=== PATIENT | female | born 1990 | race Caucasian/White ===

== ENCOUNTER 2019-06-27 20:10 | Outpatient (CLI) | payer BC ==
[2019-06-27 20:54] LABS: APPEARANCE,URINE CLOUDY; BILIRUBIN,URINE NEGATIVE (NEGATIVE); COLOR,URINE YELLOW; GLUCOSE, URINE NEGATIVE (NEGATIVE); KETONES,URINE NEGATIVE (NEGATIVE); LEUKOCYTE ESTERASE,URINE NEGATIVE (NEGATIVE); NITRITE,URINE NEGATIVE (NEGATIVE); PROTEIN,URINE 30 mg/dL (NEGATIVE); UROBILINOGEN,URINE NEGATIVE mg/dL (<2.0)
[2019-06-27 21:00] LABS: URINE AMPHETAMINES SCREEN NEGATIVE; URINE BARBITURATES SCREEN NEGATIVE; URINE BENZODIAZEPINES SCREEN NEGATIVE; URINE COCAINE SCREEN NEGATIVE; URINE MARIJUANA (THC) SCREEN NEGATIVE; URINE METHADONE SCREEN NEGATIVE; URINE PHENCYCLIDINE SCREEN NEGATIVE
[2019-06-27 21:04] LABS: ABSOLUTE EOSINOPHILS # (AUTO) 0.1 10^3/uL (0.0-0.6); ABSOLUTE LYMPHOCYTES (AUTO) 2.1 10^3/uL (0.5-4.7); ABSOLUTE MONOCYTES (AUTO) 1.3 10^3/uL (0.1-1.4); ABSOLUTE NEUT (AUTO) 9.5 10^3/uL (1.7-8.2); BASOPHILS % (AUTO) 0.2 % (0-2); EOSINOPHILS % (AUTO) 0.8 % (0-6); HEMATOCRIT 28.1 % (36.0-47.0); HEMOGLOBIN 9.5 g/dL (12.0-15.5); LYMPHOCYTES % (AUTO) 16.3 % (13-45); MEAN CORPUSCULAR HEMOGLOBIN 28.2 pg (27.0-33.4); MEAN CORPUSCULAR HGB CONC 33.8 g/dL (32.0-36.0); MEAN CORPUSCULAR VOLUME 83 fl (80-97); MONOCYTES % (AUTO) 9.7 % (3-13); PLATELET COUNT 182 10^3/uL (150-450); RED BLOOD COUNT 3.37 10^6/uL (3.72-5.28); RED CELL DISTRIBUTION WIDTH 14.7 % (11.5-14.0); TOTAL CELLS COUNTED % (AUTO) 100 %
[2019-06-27 21:27] LABS: ALBUMIN 3.2 g/dL (3.5-5.0); ALKALINE PHOSPHATASE 106 U/L (38-126); ANION GAP 11 (5-19); ASPARTATE AMINO TRANSFERASE 20 U/L (14-36); BILIRUBIN,DIRECT 0.2 mg/dL (0.0-0.4); BILIRUBIN,TOTAL 0.3 mg/dL (0.2-1.3); BLOOD UREA NITROGEN 6 mg/dL (7-20); CALCIUM 9.9 mg/dL (8.4-10.2); CARBON DIOXIDE 22 mmol/L (22-30); CHLORIDE 102 mmol/L (98-107); GLUCOSE 117 mg/dL (75-110); POTASSIUM 3.2 mmol/L (3.6-5.0); TOTAL PROTEIN 6.1 g/dL (6.3-8.2); URIC ACID 4.4 mg/dL (2.5-6.2)
[2019-06-27 21:28] LABS: UR PRO/CREAT RATIO RESULT 0.4 mg/mg (0.0-0.2); URINE CREATININE 93.8 mg/dL (16-327); URINE PROTEIN 38.6 mg/dL (<12)
== END 2019-06-27 22:04 | disposition home or self-care (01) ==
LOC: LC 20:10
PROVIDERS: ATTEND Obstetrics & Gynecology
PROC: 4A1HXCZ Monitoring of Products of Conception, Cardiac Rate, External Approach (ICD-10-PCS; principal; 2019-06-27)
DX: O47.03 False labor before 37 completed weeks of gestation, third trimester (principal); Z3A.35 35 weeks gestation of pregnancy
CPT/HCPCS: 36415; 59025; 80053; 80307; 81001; 82570; 83615; 84156; 84550; 85025

== ENCOUNTER 2019-06-28 22:09 | Outpatient (CLI) | payer BC ==
--- NOTE | 2019-06-28 22:20 | Non Stress Test Report ---
Non Stress Test Datetime Report Generated by CPN: 06/28/2019 22:19 DEMOGRAPHIC EGA NST: 35.1 INDICATION Indication for Study (NST) Other: labor check URINE RESULTS Urine Protein, NST: Positive Urine Ketones - NST: Negative Urine Glucose - NST: Negative Urine Blood - NST: Negative MONITORING Monitor Explained: Monitor Explained; Test Explained; Patient Verbalized Understanding Time on Monitor: 06/27/2019 20:28 Time off Monitor: 06/27/2019 21:42 NST Duration: 74 NST INTERVENTIONS NST Interventions: PO Hydration Physician Notified NST: Adams BABY A: [id number] BABY A Movement : Present Accelerations : 15X15 Decelerations : None Variability : Moderate 6-25bpm NST Review: Meets Criteria for Reactive NST NST Review and Verified By : rn wilda NST Results: Reactive NST REPORT Report Trigger: Send Report
[2019-06-28 23:56] LABS: URINE PROTEIN 24.3 mg/dL (<12)
[2019-06-28 23:57] LABS: 24 HOUR URINE PROTEIN RESULT 1215 mg/day (42-225)
--- NOTE | 2019-06-29 00:37 | Non Stress Test Report ---
Non Stress Test Datetime Report Generated by CPN: 06/29/2019 00:37 DEMOGRAPHIC EGA NST: 35.2 INDICATION Indication for Study (NST) Other: Gestational age greater than 32 weeks VITAL SIGNS Pulse - NST: 96 NBPSYS NST: 140 NBPDIA NST: 96 MONITORING Monitor Explained: Monitor Explained; Test Explained; Patient Verbalized Understanding Time on Monitor: 06/28/2019 22:27 Time off Monitor: 06/29/2019 00:12 NST Duration: 105 NST INTERVENTIONS NST Interventions: PO Hydration; Reposition Patient Physician Notified NST: Dr. Randy BABY A Contraction Frequency : irregular FHR Baseline : 155 Accelerations : 15X15 Decelerations : None NST Review: Meets Criteria for Reactive NST NST Review and Verified By : Cem Oviedo RN NST Results: Reactive NST REPORT Report Trigger: Send Report
== END 2019-06-29 00:28 | disposition home or self-care (01) ==
LOC: LC 22:09
PROVIDERS: ATTEND Obstetrics & Gynecology
DX: O47.03 False labor before 37 completed weeks of gestation, third trimester (principal); Z3A.35 35 weeks gestation of pregnancy
CPT/HCPCS: 59025; 84156

== ENCOUNTER 2019-07-05 03:36 | Outpatient (CLI) | payer BC ==
[2019-07-05 04:14] LABS: APPEARANCE,URINE SLIGHTLY-CLOUDY; BILIRUBIN,URINE NEGATIVE (NEGATIVE); COLOR,URINE YELLOW; GLUCOSE, URINE NEGATIVE (NEGATIVE); KETONES,URINE 20 mg/dL (NEGATIVE); LEUKOCYTE ESTERASE,URINE TRACE (NEGATIVE); NITRITE,URINE NEGATIVE (NEGATIVE); PROTEIN,URINE NEGATIVE (NEGATIVE); URINE SPECIFIC GRAVITY 1.009; UROBILINOGEN,URINE NEGATIVE mg/dL (<2.0)
[2019-07-05] MEDS ORDERED: FLUCONAZOLE 100 MG TABLET PO ONE (04:23)
[2019-07-05 04:25] LABS: URINE AMPHETAMINES SCREEN NEGATIVE; URINE BARBITURATES SCREEN NEGATIVE; URINE BENZODIAZEPINES SCREEN NEGATIVE; URINE COCAINE SCREEN NEGATIVE; URINE MARIJUANA (THC) SCREEN NEGATIVE; URINE METHADONE SCREEN NEGATIVE; URINE PHENCYCLIDINE SCREEN NEGATIVE
[2019-07-05] MEDS ORDERED: FLUCONAZOLE 100 MG TABLET ONE (04:27)
== END 2019-07-05 04:42 | disposition home or self-care (01) ==
LOC: LC 03:36
PROVIDERS: ATTEND Obstetrics & Gynecology
PROC: 4A1HXCZ Monitoring of Products of Conception, Cardiac Rate, External Approach (ICD-10-PCS; principal; 2019-07-05)
DX: O47.03 False labor before 37 completed weeks of gestation, third trimester (principal); Z3A.36 36 weeks gestation of pregnancy
CPT/HCPCS: 59025; 80307; 81001; 84112

== ENCOUNTER 2019-07-12 19:52 | Inpatient (IN) | payer BC ==
[2019-07-12] MEDS ORDERED: DINOPROSTONE 10 MG VAGINAL INSERT.SR PV ONE (20:49)
[2019-07-12] MEDS ORDERED: ZOLPIDEM TARTRATE 5 MG TABLET PO PRN (20:49)
[2019-07-12] MEDS ORDERED: RINGERS SOLUTION,LACTATED 300 ML IV ONE (20:49)
[2019-07-12] MEDS ORDERED: ACETAMINOPHEN 325 MG TABLET PO PRN (20:49)
[2019-07-12] MEDS ORDERED: OXYTOCIN 10 UNIT/ML VIAL ONE (21:14)
[2019-07-12] MEDS ORDERED: DINOPROSTONE 10 MG VAGINAL INSERT.SR ONE (21:15)
[2019-07-12] MEDS ORDERED: OXYTOCIN/NORMAL SALINE 20 UNIT/1,000 ML RTUINJ ONE (21:15)
[2019-07-12] MEDS ORDERED: MISOPROSTOL 0.2 MG TABLET ONE (21:15)
[2019-07-12] MEDS ORDERED: LIDOCAINE 1% INJ-PF (10 MG/ML) 30 ML SDV ONE (21:15)
[2019-07-12] MEDS: RINGERS SOLUTION,LACTATED 1,000 ML IV PRN (21:23)
[2019-07-12 21:24] LABS: ABSOLUTE EOSINOPHILS # (AUTO) 0.1 10^3/uL (0.0-0.6); ABSOLUTE LYMPHOCYTES (AUTO) 1.8 10^3/uL (0.5-4.7); ABSOLUTE MONOCYTES (AUTO) 1.2 10^3/uL (0.1-1.4); BASOPHILS % (AUTO) 0.3 % (0-2); EOSINOPHILS % (AUTO) 0.4 % (0-6); HEMATOCRIT 31.3 % (36.0-47.0); HEMOGLOBIN 10.9 g/dL (12.0-15.5); LYMPHOCYTES % (AUTO) 12.8 % (13-45); MEAN CORPUSCULAR HGB CONC 34.7 g/dL (32.0-36.0); MEAN CORPUSCULAR VOLUME 84 fl (80-97); MONOCYTES % (AUTO) 8.6 % (3-13); PLATELET COUNT 188 10^3/uL (150-450); RED BLOOD COUNT 3.75 10^6/uL (3.72-5.28); RED CELL DISTRIBUTION WIDTH 17.1 % (11.5-14.0); SEGMENTED NEUTROPHILS % (AUTO) 77.9 % (42-78); TOTAL CELLS COUNTED % (AUTO) 100 %
[2019-07-12 21:29] LABS: APPEARANCE,URINE CLEAR; BILIRUBIN,URINE NEGATIVE (NEGATIVE); COLOR,URINE YELLOW; GLUCOSE, URINE NEGATIVE (NEGATIVE); KETONES,URINE NEGATIVE (NEGATIVE); LEUKOCYTE ESTERASE,URINE NEGATIVE (NEGATIVE); NITRITE,URINE NEGATIVE (NEGATIVE); PROTEIN,URINE 100 mg/dL (NEGATIVE); URINE SPECIFIC GRAVITY 1.017; UROBILINOGEN,URINE NEGATIVE mg/dL (<2.0)
[2019-07-12 21:44] LABS: URINE AMPHETAMINES SCREEN NEGATIVE; URINE BARBITURATES SCREEN NEGATIVE; URINE BENZODIAZEPINES SCREEN NEGATIVE; URINE COCAINE SCREEN NEGATIVE; URINE MARIJUANA (THC) SCREEN NEGATIVE; URINE METHADONE SCREEN NEGATIVE; URINE PHENCYCLIDINE SCREEN NEGATIVE
[2019-07-12] MEDS ORDERED: HYDROXYZINE PAMOATE 50 MG CAPSULE ONE (22:56)
[2019-07-12] MEDS ORDERED: HYDROXYZINE PAMOATE 50 MG CAPSULE PO ONE (23:00)
[2019-07-12] MEDS ORDERED: MAG HYDROX/AL HYDROX/SIMETH SUSP 30 ML UDCUP ONE (23:02)
[2019-07-12] MEDS: MAG HYDROX/AL HYDROX/SIMETH SUSP 30 ML UDCUP PO PRN (23:04)
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
[2019-07-13] MEDS ORDERED: MAG HYDROX/AL HYDROX/SIMETH SUSP 30 ML UDCUP ONE (06:58)
[2019-07-13] MEDS: MAG HYDROX/AL HYDROX/SIMETH SUSP 30 ML UDCUP PO PRN (07:00)
[2019-07-13] MEDS ORDERED: LIDOCAINE 2% JELLY 5 ML TUBE ONE (09:36)
[2019-07-13 09:47] LABS: ABSOLUTE EOSINOPHILS # (AUTO) 0.1 10^3/uL (0.0-0.6); ABSOLUTE LYMPHOCYTES (AUTO) 1.8 10^3/uL (0.5-4.7); ABSOLUTE MONOCYTES (AUTO) 0.8 10^3/uL (0.1-1.4); ABSOLUTE NEUT (AUTO) 9.5 10^3/uL (1.7-8.2); BASOPHILS % (AUTO) 0.2 % (0-2); EOSINOPHILS % (AUTO) 0.5 % (0-6); HEMATOCRIT 33.7 % (36.0-47.0); HEMOGLOBIN 11.1 g/dL (12.0-15.5); MEAN CORPUSCULAR HEMOGLOBIN 28.1 pg (27.0-33.4); MEAN CORPUSCULAR VOLUME 85 fl (80-97); MONOCYTES % (AUTO) 6.9 % (3-13); PLATELET COUNT 191 10^3/uL (150-450); RED BLOOD COUNT 3.96 10^6/uL (3.72-5.28); RED CELL DISTRIBUTION WIDTH 17.4 % (11.5-14.0); SEGMENTED NEUTROPHILS % (AUTO) 77.4 % (42-78); TOTAL CELLS COUNTED % (AUTO) 100 %; WHITE BLOOD COUNT 12.2 10^3/uL (4.0-10.5)
[2019-07-13 10:10] LABS: ALBUMIN 3.5 g/dL (3.5-5.0); ALKALINE PHOSPHATASE 138 U/L (38-126); ANION GAP 12 (5-19); ASPARTATE AMINO TRANSFERASE 30 U/L (14-36); BILIRUBIN,DIRECT 0.1 mg/dL (0.0-0.4); BILIRUBIN,TOTAL 0.5 mg/dL (0.2-1.3); BLOOD UREA NITROGEN 5 mg/dL (7-20); CARBON DIOXIDE 19 mmol/L (22-30); CHLORIDE 103 mmol/L (98-107); GLUCOSE 138 mg/dL (75-110); POTASSIUM 3.7 mmol/L (3.6-5.0); TOTAL PROTEIN 6.4 g/dL (6.3-8.2); URIC ACID 4.8 mg/dL (2.5-6.2)
[2019-07-13] MEDS ORDERED: MORPHINE SULFATE 10 MG/ML INJ IV ONE (10:22)
[2019-07-13] MEDS ORDERED: MORPHINE SULFATE 10 MG/ML INJ ONE (10:24)
[2019-07-13] MEDS ORDERED: PROMETHAZINE HCL INJ 25 MG/1 ML VIAL IV ONE (10:25)
[2019-07-13] MEDS ORDERED: PROMETHAZINE HCL INJ 25 MG/1 ML VIAL ONE (10:29)
[2019-07-13] MEDS: OXYTOCIN/NORMAL SALINE 20 UNIT/1,000 ML RTUINJ IV PRN (11:54)
[2019-07-13 18:16] LABS: ABSOLUTE BASOPHILS # (AUTO) 0.1 10^3/uL (0.0-0.2); ABSOLUTE LYMPHOCYTES (AUTO) 1.6 10^3/uL (0.5-4.7); ABSOLUTE MONOCYTES (AUTO) 1.1 10^3/uL (0.1-1.4); ABSOLUTE NEUT (AUTO) 10.5 10^3/uL (1.7-8.2); BASOPHILS % (AUTO) 0.4 % (0-2); EOSINOPHILS % (AUTO) 0.2 % (0-6); HEMATOCRIT 32.7 % (36.0-47.0); HEMOGLOBIN 10.7 g/dL (12.0-15.5); LYMPHOCYTES % (AUTO) 11.7 % (13-45); MEAN CORPUSCULAR HEMOGLOBIN 27.9 pg (27.0-33.4); MEAN CORPUSCULAR HGB CONC 32.8 g/dL (32.0-36.0); MEAN CORPUSCULAR VOLUME 85 fl (80-97); MONOCYTES % (AUTO) 8.2 % (3-13); PLATELET COUNT 183 10^3/uL (150-450); RED BLOOD COUNT 3.85 10^6/uL (3.72-5.28); RED CELL DISTRIBUTION WIDTH 17.6 % (11.5-14.0); SEGMENTED NEUTROPHILS % (AUTO) 79.5 % (42-78); TOTAL CELLS COUNTED % (AUTO) 100 %; WHITE BLOOD COUNT 13.3 10^3/uL (4.0-10.5)
[2019-07-13] MEDS ORDERED: EPHEDRINE SULFATE INJ 50 MG/1 ML AMPULE ONE (19:08)
[2019-07-13] MEDS ORDERED: BUPIVACAINE HCL 0.25 % INJ/PF (2.5 MG/1 ML) 30 ML VIAL ONE (19:09)
[2019-07-13] MEDS ORDERED: FENTANYL/BUPIVACAINE/NS/PF 300 MCG/150 ML RTUINJ EPI ONE (19:09)
--- NOTE | 2019-07-13 20:18 | PDOC PROGRESS REPORT ---
Subjective Progress Note for:: 07/13/19 Subjective:: Labor check : ctx stronger, she desires epidural No LOF or VB Reason For Visit: /INDUCTION Physical Exam - Physical Exam Vital Signs: Intake & Output 07/12/19 07/13/19 07/14/19 06:59 06:59 06:59 Weight 114 kg General appearance: PRESENT: no acute distress GI/Abdominal exam: PRESENT: soft Skin exam: PRESENT: dry, warm - Gynecological Exam Cervix: normal - 3/80/-2 AROM'd clear Result Laboratory Results: 07/13/19 18:01 07/13/19 09:22 07/12/19 07/12/19 07/12/19 20:05 21:06 21:06 WBC 14.0 H RBC 3.75 Hgb 10.9 L Hct 31.3 L MCV 84 MCH 29.0 MCHC 34.7 RDW 17.1 H Plt Count 188 Seg Neutrophils % 77.9 Sodium Potassium Chloride Carbon Dioxide Anion Gap BUN Creatinine Est GFR ( Amer) Glucose Uric Acid Calcium Total Bilirubin AST Alkaline Phosphatase Total Protein Albumin Urine Color YELLOW Urine Appearance CLEAR Urine pH 6.0 Ur Specific [place] 1.017 Urine Protein 100 H Urine Glucose (UA) NEGATIVE Urine Ketones NEGATIVE Urine Blood NEGATIVE Urine Nitrite NEGATIVE Ur Leukocyte Esterase NEGATIVE Blood Type A POSITIVE Antibody Screen NEGATIVE 07/13/19 07/13/19 07/13/19 09:22 09:22 18:01 WBC 12.2 H 13.3 H RBC 3.96 3.85 Hgb 11.1 L 10.7 L Hct 33.7 L 32.7 L MCV 85 85 MCH 28.1 27.9 MCHC 33.0 32.8 RDW 17.4 H 17.6 H Plt Count 191 183 Seg Neutrophils % 77.4 79.5 H Sodium 134.3 L Potassium 3.7 Chloride 103 Carbon Dioxide 19 L Anion Gap 12 BUN 5 L Creatinine 0.59 Est GFR ( Amer) > 60 Glucose 138 H Uric Acid 4.8 Calcium 9.0 Total Bilirubin 0.5 AST 30 Alkaline Phosphatase 138 H Total Protein 6.4 Albumin 3.5 Urine Color Urine Appearance Urine pH Ur Specific [place] Urine Protein Urine Glucose (UA) Urine Ketones Urine Blood Urine Nitrite Ur Leukocyte Esterase Blood Type Antibody Screen Assessment & Plan - Diagnosis (1) Intrauterine Is this a current diagnosis for this admission?: Yes (2) Encounter for induction of labor Is this a current diagnosis for this admission?: Yes (3) Pre-eclampsia Is this a current diagnosis for this admission?: Yes Plan: Cvx: /-2 AROM'd clear Plan epidural GBS negative Anticipate B/P normotensive presently . Repeat labs stable - Time Time Spent with patient: 15-24 minutes
[2019-07-14] MEDS ORDERED: FENTANYL/BUPIVACAINE/NS/PF 300 MCG/150 ML RTUINJ EPI ONE (07:37)
[2019-07-14] MEDS ORDERED: OXYTOCIN/NORMAL SALINE 20 UNIT/1,000 ML RTUINJ ONE ×3 (08:46→19:41)
[2019-07-14] MEDS: OXYTOCIN/NORMAL SALINE 20 UNIT/1,000 ML RTUINJ IV PRN (08:53)
[2019-07-14] MEDS: RINGERS SOLUTION,LACTATED 1,000 ML IV PRN (08:55)
[2019-07-14] MEDS ORDERED: ACETAMINOPHEN 325 MG TABLET ONE ×2 (09:26→16:43)
[2019-07-14] MEDS ORDERED: AMPICILLIN SOD INJ 2 GM VIAL ONE (09:26)
[2019-07-14] MEDS ORDERED: ACETAMINOPHEN 325 MG TABLET PO ONE (09:29)
[2019-07-14] MEDS ORDERED: GENTAMICIN SULFATE INJ 80 MG/2 ML VIAL IV SCH ×2 (09:30→14:00)
[2019-07-14] MEDS: AMPICILLIN SODIUM 2 GM in NORMAL SALINE 100 ML IV SCH ×2 (09:38→15:45)
[2019-07-14] MEDS ORDERED: WATER IV ONE (11:00)
[2019-07-14] MEDS ORDERED: DEXTROSE 5% IV ONE (11:00)
[2019-07-14] MEDS ORDERED: GENTAMICIN SULFATE IV ONE (11:00)
[2019-07-14] MEDS ORDERED: DIPHENHYDRAMINE HCL 50 MG/ML VIAL ONE (15:00)
[2019-07-14] MEDS ORDERED: DIPHENHYDRAMINE HCL 50 MG/ML VIAL IV ONE (15:30)
[2019-07-14] MEDS ORDERED: ACETAMINOPHEN 325 MG TABLET PO PRN ×2 (16:43→19:44)
[2019-07-14] MEDS ORDERED: CEFAZOLIN 1 GM/D5W RTU 2 GM/100 ML RTUPB IV ONE (17:17)
[2019-07-14] MEDS ORDERED: LIDOCAINE 2% INJ-PF (20 MG/ML) 10 ML AMPUL ONE ×2 (17:17→17:27)
[2019-07-14] MEDS ORDERED: CITRIC ACID/SODIUM CITRATE ORAL SOLN 15 ML UDCUP ONE (17:17)
[2019-07-14] MEDS ORDERED: OXYTOCIN 10 UNIT/ML VIAL ONE (17:25)
[2019-07-14] MEDS ORDERED: KETOROLAC TROMETHAMINE INJ/PF 30 MG/1 ML SDV ONE (17:25)
[2019-07-14] MEDS ORDERED: FENTANYL CITRATE INJ/PF 100 MCG/2 ML AMPUL ONE ×2 (17:25→18:19)
[2019-07-14] MEDS ORDERED: MIDAZOLAM 2 MG/2 ML INJ ONE (17:26)
[2019-07-14] MEDS ORDERED: ACETAMINOPHEN 1,000 MG/100 ML RTUPB IV ONE (17:26)
[2019-07-14] MEDS ORDERED: ONDANSETRON HCL INJ/PF 4 MG/2 ML SDV ONE (17:26)
[2019-07-14] MEDS ORDERED: EPHEDRINE SULFATE INJ 50 MG/1 ML AMPULE ONE (17:26)
[2019-07-14] MEDS ORDERED: DEXAMETHASONE SOD PHOSPHATE INJ 4 MG/1 ML VIAL ONE (17:27)
[2019-07-14] MEDS ORDERED: KETAMINE HCL INJ 500 MG/10 ML VIAL ONE (18:19)
[2019-07-14] MEDS ORDERED: HYDROMORPHONE HCL INJ/PF 2 MG/ML AMPULE ONE (18:19)
[2019-07-14] MEDS ORDERED: FENTANYL CITRATE INJ/PF 100 MCG/2 ML AMPUL IV PRN ×3 (18:48)
[2019-07-14] MEDS ORDERED: DIPHENHYDRAMINE HCL 50 MG/ML VIAL IV PRN (18:48)
[2019-07-14] MEDS ORDERED: PROMETHAZINE HCL INJ 25 MG/1 ML VIAL IV PRN ×3 (18:48→19:44)
[2019-07-14] MEDS ORDERED: MEPERIDINE HCL/PF INJ 25 MG/1 ML DISP.SYRIN IV PRN (18:48)
[2019-07-14] MEDS ORDERED: OXYCODONE-ACETAMINOPHEN 5-325 MG TABLET PO PRN ×3 (18:48→19:44)
[2019-07-14] MEDS ORDERED: ONDANSETRON HCL INJ/PF 4 MG/2 ML SDV IV PRN (18:48)
[2019-07-14] MEDS ORDERED: HYDRALAZINE HCL INJ/PF 20 MG/1 ML SDV ONE ×2 (19:42→20:32)
[2019-07-14] MEDS ORDERED: MEASLES,MUMPS&RUBELLA VACC/PF 0.5 ML VIAL SUBCUT PRN (19:44)
[2019-07-14] MEDS ORDERED: DIPH/PERTUSS(ACELL)/TETANUS VAC/PF 0.5 ML SYR (>=10YO) IM PRN (19:44)
[2019-07-14] MEDS ORDERED: SIMETHICONE 80 MG TAB.CHEW PO PRN (19:44)
[2019-07-14] MEDS ORDERED: OXYTOCIN/NORMAL SALINE 20 UNIT/1,000 ML RTUINJ IV PRN (19:44)
[2019-07-14] MEDS ORDERED: ACETAMINOPHEN 1,000 MG/100 ML RTUPB IV PRN (19:44)
--- NOTE | 2019-07-14 19:52 | Brief Operative Note ---
BRIEF OPERATIVE REPORT DATE OF SURGERY: 07/14/19 TIME OF SURGERY: 18:00 PREOPERATIVE DIAGNOSIS: 37+4ega, PreE, NRFHTs, Arrest of Dilation, Chorioamnionitis POSTOPERATIVE DIAGNOSIS: TONY - delivered, Nuchal cord SURGEON: ERMELINDA BRYSON FINDINGS: beginning of Bandls ring causing difficulty with delivery of infants head, Nuchal cord loose noted. VFI delivered at 1818, weight 8#8oz. Apgars 8/9, IVF 2000ml, UOP 300ml, EBL 800ml, QBL 1819ml (suspect off somewhat due to amniotic fluid) - stat labs ordered. COMPLICATIONS: uterine atony, bandl ring ESTIMATED BLOOD LOSS: 800ml TISSUE REMOVED OR ALTERED: placenta and cord sent to pathology TECHNICAL PROCEDURE: Primary section
[2019-07-14] MEDS: GENTAMICIN SULFATE 170 MG in DEXTROSE 5%-WATER 100 ML IV SCH (20:07)
[2019-07-14 20:21] LABS: HEMATOCRIT 27.2 % (36.0-47.0); HEMOGLOBIN 9.1 g/dL (12.0-15.5); MEAN CORPUSCULAR HEMOGLOBIN 28.4 pg (27.0-33.4); MEAN CORPUSCULAR HGB CONC 33.3 g/dL (32.0-36.0); MEAN CORPUSCULAR VOLUME 85 fl (80-97); PLATELET COUNT 188 10^3/uL (150-450); RED BLOOD COUNT 3.19 10^6/uL (3.72-5.28); RED CELL DISTRIBUTION WIDTH 18.2 % (11.5-14.0); WHITE BLOOD COUNT 20.8 10^3/uL (4.0-10.5)
[2019-07-14 20:26] LABS: PARTIAL THROMBOPLASTIN TIME 29.5 SEC (23.5-35.8); PROTHROMBIN TIME 14.3 SEC (11.4-15.4)
[2019-07-14] MEDS ORDERED: HYDRALAZINE HCL INJ/PF 20 MG/1 ML SDV IV ONE ×2 (20:26)
[2019-07-14 20:35] LABS: ALBUMIN 2.6 g/dL (3.5-5.0); ALKALINE PHOSPHATASE 117 U/L (38-126); ANION GAP 8 (5-19); ASPARTATE AMINO TRANSFERASE 19 U/L (14-36); BILIRUBIN,DIRECT 0.3 mg/dL (0.0-0.4); BILIRUBIN,TOTAL 0.5 mg/dL (0.2-1.3); BLOOD UREA NITROGEN 3 mg/dL (7-20); CALCIUM 8.1 mg/dL (8.4-10.2); CARBON DIOXIDE 20 mmol/L (22-30); CHLORIDE 107 mmol/L (98-107); GLUCOSE 125 mg/dL (75-110); POTASSIUM 3.5 mmol/L (3.6-5.0); TOTAL PROTEIN 5.3 g/dL (6.3-8.2)
[2019-07-14 20:45] LABS: BAND NEUTROPHILS % (MANUAL) 1 % (3-5); BASOPHILS % (MANUAL) 0 % (0-2); EOSINOPHILS % (MANUAL) 1 % (0-6); LYMPHOCYTES % (MANUAL) 4 % (13-45); MONOCYTES % (MANUAL) 5 % (3-13); SEGMENTED NEUTROPHILS % (MAN) 88 % (42-78); TOTAL CELLS COUNTED 100
[2019-07-14] MEDS ORDERED: MORPHINE SULFATE 10 MG/ML INJ ONE (20:45)
[2019-07-14 20:47] LABS: ANISOCYTOSIS 2+; PLATELET COMMENT ADEQUATE; PLATELET GIANT PRESENT; POLYCHROMASIA SLIGHT
[2019-07-14] MEDS: MORPHINE SULFATE 10 MG/ML INJ IV PRN ×2 (20:48→21:00)
--- NOTE | 2019-07-14 21:04 | Operative Report ---
Operative Report DATE OF SURGERY: 07/14/19 PREOPERATIVE DIAGNOSIS: 37+4ega, PreE, NRFHTs, Arrest of Dilation, Chorioamnion itis, Failed Induction of labor, H/o LEEP, pos RPR with titer 1:1, Late to care POSTOPERATIVE DIAGNOSIS: TONY delivered, Nuchal cord OPERATION: Primary section SURGEON: ERMELINDA BRYSON ANESTHESIA: Spinal TISSUE REMOVED OR ALTERED: placenta and cord COMPLICATIONS: uterine atony, bandl ring ESTIMATED BLOOD LOSS: 800ml INTRAOPERATIVE FINDINGS: beginning of Bandls ring causing difficulty with delivery of infants head, Nuchal cord loose noted. VFI delivered at 1818, weight 8#8oz. Apgars 8/9, IVF 2000ml, UOP 300ml, EBL 800ml, QBL 1819ml (suspect off somewhat due to amniotic fluid) - stat labs ordered. Normal bilateral tubes/ovaries. PROCEDURE: Anesthesia provider: [Shannan Epps CRNA, Jany SHIELDS] Urine output: [] IV fluids: [] Indications: [28yo at 37+4ega with late to care at 21wks presents for IOL on 07/12/2019] Procedure: The patient was taken to the operating room where spinal anesthesia was obtained and found to be adequate. She was then prepped and draped in the normal sterile fashion and placed in the dorsal supine position with a leftward tilt. A Pfannenstiel skin incision was then made and carried through to the underlying layers of the fascia with the scalpel. The fascia was incised in the midline and the incision extended laterally with the Nick scissors. The superior aspect of the fascial incision was then grasped with [place] clamps elevated and the underlying rectus muscles dissected off [bluntly]. Attention was then turned to the inferior aspect of the fascial incision which in a similar fashion was grasped, tented up with Kelly clamps, and the rectus muscles dissected off [bluntly]. The rectus muscles were then in the midline and the peritoneum at the amount identified and entered [bluntly]. The peritoneal incision was then extended superiorly and inferiorly with good visualization of the bladder. The bladder blade was inserted and the vesicouterine peritoneum identified grasped with [place] pickups and entered sharply with the Metzenbaum scissors. This incision was then extended laterally with the Metzenbaum scissors and a bladder flap created digitally. The bladder blade was then reinserted and the lower uterine segment incised in a transverse fashion with the scalpel. The uterine incision was then extended bluntly. The bladder blade was removed and the 's head was delivered from cephalic presentation atraumatically. The nose and mouth were suctioned and the cord doubly clamped and cut. And the infant was handed off to waiting pediatricians. The placenta was then delivered spontaneously and the uterus exteriorized and cleared of all clots and debris. The uterine incision was then repaired with 1- 0 Vicryl in a running locked fashion. A second layer of the same suture was used to obtain hemostasis via imbrication of the initial layer. The bladder flap was then repaired with 3-0 chromic in a running fashion. The uterus was returned to the patient's abdomen and Interceed was placed overlying the uterine incision to prevent adhesions. The gutters were cleared of all clots and debris. All operative sites were noted to be hemostatic. The fascia was reapproximated with 0 Vicryl in a running fashion from each lateral edge to the midline. The skin was closed with 3-0 Monocryl in a running subcuticular fashion with overlying Dermabond for additional dressing as well as wound closure. The patient tolerated the procedure well. Sponge lap needle and instrument counts are correct -2. 2 g of Ancef were given prior to skin incision. The patient was taken to the recovery area awake and in stable condition.
--- NOTE | 2019-07-14 22:17 | Delivery Summary ---
Del Sum A-C Datetime Report Generated by CPN: 07/14/2019 22:16 DELIVERY PERSONNEL DELIVERY PERSONNEL: [id number] Delivery Doctor:: Leah Jim MD Anesthesiologist:: Benedict Carmichael MD HEELER:: Shannan Epps CRNA Chief Innovation Officer:: Kayla Whalen RN Neonatal Nurse Practitioner:: SOFIA Dubois Nursery Nurse:: Selina Watson RN Floor Manager/CAN COVERER: [facility] Floor Manager/CAN COVERER: Fátima Amezcua, AIRCRAFT SKIN BURNISHER MATERNAL INFORMATION Delivery Anesthesia: Epidural; Spinal Medications After Delivery: Pitocin Bolus-Please Comment Meds After Delivery Comment: 20 Units Pitocin/1000 ml NS Delivery QBL Comment: 1819ml, suspect off some due to amniotic fluid Maternal Complications: Maternal Fever LABOR SUMMARY EDC: 07/31/2019 00:00 No. Babies in Womb: 1 Attempted: No Labor Anesthesia: Epidural LABOR INFORMATION Reason for Induction: Pre-Eclampsia Onset of Labor: 07/14/2019 03:30 Cervical Ripening Agents: Cervidil; Banks Balloon Oxytocin: Induction Group B Beta Strep: negative Steroids Given: None Reason Steroids Not Administered: Not Applicable MEMBRANES Membranes Rupture Method: Artificial Rupture of Membranes: 07/13/2019 18:49 Length of Rupture (hr): 23.48 Amniotic Fluid Color: Clear Amniotic Fluid Amount: Small Amniotic Fluid Odor: Normal STAGES OF LABOR Stage 3 hr: 0 Stage 3 min: 1 Total Time in Labor hr: 14 Total Time in Labor min: 49 VAGINAL DELIVERY Episiotomy: None Laceration #1: None Laceration Extension #1: N/A Laceration Repair: Not Applicable Sponge Count Correct: Yes Sharps Count Correct: Yes CSECTION DELIVERY Primary Indication: Nonreassuring Status Other Primary Indication: tachy[place]ia Other Secondary Indication: high resting tone, arrest of dilation CSection Urgency: Non-Scheduled CSection Incidence: Primary Labor: Labor Elective: Nonelective CSection Incision: Lower Uterine Transverse BABY A INFORMATION Delivery Date/Time: 07/14/2019 18:18 Method of Delivery: Nurse Controlled Delivery: No Born in Route : No : N/A Forceps: N/A Vacuum Extraction: N/A Shoulder Dystocia : No PRESENTATION/POSITION BABY A Presentation: Cephalic Cephalic Presentation: Vertex Breech Presentation: N/A PLACENTA INFORMATION BABY A Placenta Delivery Time : 07/14/2019 18:19 Placenta Method of Delivery: Manual Removal Placenta Status: Delivered SCORES BABY A Heart Rate 1 min: >100 bpm Resp Effort 1 min: Good Cry Reflex Irritability 1 min: Cough or Sneeze or Pulls Away Muscle Tone 1 min: Active Motion Color 1 min: Blue/Pale Resuscitation Effort 1 min: Tactile Stimulation SCORE 1 MIN: 8 Heart Rate 5 min: >100 bpm Resp Effort 5 min: Good Cry Reflex Irritability 5 min: Cough or Sneeze or Pulls Away Muscle Tone 5 min: Active Motion Color 5 min: Body [place], Extremities Blue Resuscitation Effort 5 min: Tactile Stimulation SCORE 5 MIN: 9 INFORMATION BABY A Gestational Age at Delivery: 37.4 Gestational Status: Early Term- 37- 38.6 Weeks Infant Outcome : Liveborn Condition : Stable Sex: Female IDENTIFICATION BABY A Verification Date/Time: 07/14/2019 22:15 ID Band Number: [id number] Mother's Name Verified: Yes RN Verifying : Gonsalo Dubon, RN/Jigar Dorisnicol, US WEIGHT/LENGTH BABY A Birthweight (gm): 3865 Weight (lb): 8 Weight (oz): 8 Length (in): 20.50 (Annotations: Data stored by CPN on behalf of user) Length (cm): 52.07 CORD INFORMATION BABY A No. Cord Vessels: 3 Nuchal Cord : N/A Cord Blood Taken: Yes-For Storage (Mom's Blood type +) Infant Suction: None; Mouth ASSESSMENT BABY A Skin to Skin: No BABY B INFORMATION : N/A
[2019-07-14] MEDS: KETOROLAC TROMETHAMINE INJ/PF 30 MG/1 ML SDV IV SCH (22:50)
[2019-07-15] MEDS: OXYCODONE-ACETAMINOPHEN 5-325 MG TABLET PO PRN ×4 (01:00→19:44)
[2019-07-15] MEDS: AMPICILLIN SODIUM 2 GM in NORMAL SALINE 100 ML IV SCH ×4 (01:00→19:08)
[2019-07-15] MEDS ORDERED: NIFEDIPINE 30 MG TAB.ER.24 PO ONE (02:00)
[2019-07-15] MEDS: GENTAMICIN SULFATE 170 MG in DEXTROSE 5%-WATER 100 ML IV SCH ×3 (02:39→18:03)
[2019-07-15] MEDS: HYDROMORPHONE HCL INJ/PF 2 MG/ML AMPULE IV PRN ×2 (04:10→08:26)
[2019-07-15] MEDS: KETOROLAC TROMETHAMINE INJ/PF 30 MG/1 ML SDV IV SCH ×2 (05:20→13:46)
[2019-07-15 07:41] LABS: HEMATOCRIT 25.7 % (36.0-47.0); HEMOGLOBIN 8.5 g/dL (12.0-15.5); MEAN CORPUSCULAR HEMOGLOBIN 28.2 pg (27.0-33.4); MEAN CORPUSCULAR HGB CONC 33.1 g/dL (32.0-36.0); MEAN CORPUSCULAR VOLUME 85 fl (80-97); PLATELET COUNT 202 10^3/uL (150-450); RED BLOOD COUNT 3.02 10^6/uL (3.72-5.28); RED CELL DISTRIBUTION WIDTH 17.5 % (11.5-14.0); WHITE BLOOD COUNT 24.3 10^3/uL (4.0-10.5)
[2019-07-15] MEDS: RINGERS SOLUTION,LACTATED 1,000 ML IV PRN (08:29)
--- NOTE | 2019-07-15 09:41 | PDOC PROGRESS REPORT ---
Subjective-OB Progress Note for:: 07/15/19 Subjective: Laying in bed, hsb at BS holding baby, states she is in so much pain and no meds are helping her, abd soft, no nausea, martinez remains in place Physical Exam (OB) Vital Signs: Temp Pulse Resp BP Pulse Ox 97.6 F 115 H 18 143/84 H 95 07/15/19 07:54 07/15/19 07:54 07/15/19 07:54 07/15/19 07:54 07/15/19 07:54 Intake & Output 07/14/19 07/15/19 07/16/19 06:59 06:59 06:59 Intake Total 419 1204.25 Output Total 1999 191 Balance -1999 228 1204.25 Objective-Diagnostic Laboratory: 07/15/19 06:58 07/14/19 20:05 07/14/19 07/14/19 07/15/19 20:05 20:05 06:58 WBC 20.8 H 24.3 H RBC 3.19 L 3.02 L Hgb 9.1 L 8.5 L Hct 27.2 L 25.7 L MCV 85 85 MCH 28.4 28.2 MCHC 33.3 33.1 RDW 18.2 H 17.5 H Plt Count 188 202 Seg Neutrophils % Not Reportable Sodium 134.9 L Potassium 3.5 L Chloride 107 Carbon Dioxide 20 L Anion Gap 8 BUN 3 L Creatinine 0.54 Est GFR ( Amer) > 60 Glucose 125 H Calcium 8.1 L Total Bilirubin 0.5 AST 19 Alkaline Phosphatase 117 Total Protein 5.3 L Albumin 2.6 L Assessment and Plan(PN) - Assessment and Plan (1) S/P primary low transverse Is this a current diagnosis for this admission?: Yes (2) Chorioamnionitis Qualifiers: Fetus number: single or unspecified fetus Is this a current diagnosis for this admission?: Yes (3) Intrauterine Is this a current diagnosis for this admission?: Yes (4) Encounter for induction of labor Is this a current diagnosis for this admission?: Yes (5) Pre-eclampsia Qualifiers: Trimester: second trimester Qualified Code(s): O14.92 - Unspecified pre- eclampsia, second trimester Is this a current diagnosis for this admission?: Yes - Time Spent with Patient Time with patient: Less than 15 minutes Medications reviewed and adjusted accordingly: Yes - Disposition Anticipated Discharge: Home Within: within 24 hours
[2019-07-15] MEDS: DOCUSATE SODIUM 100 MG CAPSULE PO SCH ×2 (09:55→18:03)
[2019-07-15] MEDS: PRENATAL VITAMIN W DHA CAPSULE PO SCH (09:55)
--- NOTE | 2019-07-15 13:57 | PDOC PROGRESS REPORT ---
Subjective-OB Progress Note for:: 07/15/19 Subjective: OOB to BR, feels shaky but not dizzy, first time out of bed, voided Physical Exam (OB) Vital Signs: Temp Pulse Resp BP Pulse Ox 98.5 F 123 H 16 147/83 H 96 07/15/19 11:32 07/15/19 11:32 07/15/19 11:32 07/15/19 11:32 07/15/19 11:32 Intake & Output 07/14/19 07/15/19 07/16/19 06:59 06:59 06:59 Intake Total 419 1648.50 Output Total 1999 191 Balance -1999 228 1648.50 - PIH/Pre-Eclampsia Clonus: Negative Headache: Absent Epigastric Pain: No Visual Changes: No - Closure Type: Surgical Glue - Lochia Lochia Amount: Scant < 10 ml Lochia Color: Rubra/Red - Abdomen Description: Tender, Soft, Round Hernia Present: No Fundal Description: Firm, Midline Fundal Height: u/u - u/2 Objective-Diagnostic Laboratory: 07/15/19 06:58 07/14/19 20:05 07/14/19 07/14/19 07/15/19 20:05 20:05 06:58 WBC 20.8 H 24.3 H RBC 3.19 L 3.02 L Hgb 9.1 L 8.5 L Hct 27.2 L 25.7 L MCV 85 85 MCH 28.4 28.2 MCHC 33.3 33.1 RDW 18.2 H 17.5 H Plt Count 188 202 Seg Neutrophils % Not Reportable Sodium 134.9 L Potassium 3.5 L Chloride 107 Carbon Dioxide 20 L Anion Gap 8 BUN 3 L Creatinine 0.54 Est GFR ( Amer) > 60 Glucose 125 H Calcium 8.1 L Total Bilirubin 0.5 AST 19 Alkaline Phosphatase 117 Total Protein 5.3 L Albumin 2.6 L Assessment and Plan(PN) - Assessment and Plan (1) S/P primary low transverse Is this a current diagnosis for this admission?: Yes (2) Chorioamnionitis Qualifiers: Fetus number: single or unspecified fetus Is this a current diagnosis for this admission?: Yes (3) Intrauterine Is this a current diagnosis for this admission?: Yes (4) Encounter for induction of labor Is this a current diagnosis for this admission?: Yes (5) Pre-eclampsia Qualifiers: Trimester: second trimester Qualified Code(s): O14.92 - Unspecified pre- eclampsia, second trimester Is this a current diagnosis for this admission?: Yes - Time Spent with Patient Medications reviewed and adjusted accordingly: Yes - Disposition Anticipated Discharge: Home Disposition: Plan, IV iron, recheck CBC today, consider blood if tachy or does not tolerate ambulation
[2019-07-15 14:26] LABS: HEMATOCRIT 25.3 % (36.0-47.0); HEMOGLOBIN 8.3 g/dL (12.0-15.5); MEAN CORPUSCULAR HEMOGLOBIN 27.8 pg (27.0-33.4); MEAN CORPUSCULAR HGB CONC 32.9 g/dL (32.0-36.0); MEAN CORPUSCULAR VOLUME 85 fl (80-97); PLATELET COUNT 194 10^3/uL (150-450); RED BLOOD COUNT 2.99 10^6/uL (3.72-5.28); RED CELL DISTRIBUTION WIDTH 17.9 % (11.5-14.0); WHITE BLOOD COUNT 17.1 10^3/uL (4.0-10.5)
[2019-07-15] MEDS ORDERED: IRON SUCROSE COMPLEX INJ/PF 100 MG/5 ML SDV IV ONE (15:00)
[2019-07-16] MEDS: IBUPROFEN 800 MG TABLET PO SCH ×5 (00:14→23:41)
[2019-07-16] MEDS: OXYCODONE-ACETAMINOPHEN 5-325 MG TABLET PO PRN ×3 (00:14→17:38)
[2019-07-16] MEDS ORDERED: IBUPROFEN 800 MG TABLET PO SCH (09:00)
[2019-07-16] MEDS: KETOROLAC TROMETHAMINE INJ/PF 30 MG/1 ML SDV IV SCH (09:01)
[2019-07-16] MEDS: AMPICILLIN SODIUM 2 GM in NORMAL SALINE 100 ML IV SCH (09:02)
[2019-07-16] MEDS: PRENATAL VITAMIN W DHA CAPSULE PO SCH (09:44)
[2019-07-16] MEDS: DOCUSATE SODIUM 100 MG CAPSULE PO SCH ×2 (09:44→17:38)
--- NOTE | 2019-07-16 10:04 | PDOC PROGRESS REPORT ---
Subjective-OB Progress Note for:: 07/16/19 - POD #2, pt doing well, A+, s/p , Will order Iron IV infusion for today, Hgb 8.3. Pt is , PPH during c- section Physical Exam (OB) Vital Signs: Temp Pulse Resp BP Pulse Ox 97.7 F 121 H 16 119/82 98 07/16/19 07:52 07/16/19 07:52 07/16/19 07:52 07/16/19 07:52 07/16/19 07:52 Intake & Output 07/15/19 07/16/19 07/17/19 06:59 06:59 06:59 Intake Total 419 5352.75 800 Output Total 191 1700 Balance 228 3652.75 800 - General General Appearance: Appears well, Alert In distress: None - PIH/Pre-Eclampsia DTR's: 2 + Clonus: Negative Headache: Absent Epigastric Pain: No Visual Changes: No - Dressing Removed: No Incision: Well Approximated Closure Type: Surgical Glue - Lochia Lochia Amount: Small 10-25 ml Lochia Color: Rubra/Red - Abdomen Description: Tender, Soft Hernia Present: No Fundal Description: Firm, Midline Fundal Height: u/u - u/2 - Respiratory Respiratory Status: No respiratory distress - Genitourinary Genitourinary Note: voiding - Extremities Upper extremity: Normal inspection Lower extremities: Normal inspection - Neurological Cognition: Normal Orientation: AAOx4 Objective-Diagnostic Laboratory: 07/15/19 14:18 07/14/19 20:05 07/15/19 14:18 WBC 17.1 H RBC 2.99 L Hgb 8.3 L Hct 25.3 L MCV 85 MCH 27.8 MCHC 32.9 RDW 17.9 H Plt Count 194 Assessment and Plan(PN) - Assessment and Plan (1) Acute blood loss as cause of postoperative anemia Is this a current diagnosis for this admission?: Yes (2) Chorioamnionitis Qualifiers: Fetus number: single or unspecified fetus Is this a current diagnosis for this admission?: Yes (3) Encounter for induction of labor Is this a current diagnosis for this admission?: Yes (4) Intrauterine Is this a current diagnosis for this admission?: Yes (5) Pre-eclampsia Qualifiers: Trimester: second trimester Qualified Code(s): O14.92 - Unspecified pre-eclampsia, second trimester Is this a current diagnosis for this admission?: Yes (6) S/P primary low transverse Is this a current diagnosis for this admission?: Yes Plan:: IV iron infusion, check CBC in the am - Time Spent with Patient Medications reviewed and adjusted accordingly: Yes - Disposition Anticipated Discharge: Home Within: within 24 hours
[2019-07-16] MEDS ORDERED: IRON SUCROSE COMPLEX INJ/PF 100 MG/5 ML SDV IV ONE (10:30)
[2019-07-17] MEDS: IBUPROFEN 800 MG TABLET PO SCH ×3 (05:07→17:12)
[2019-07-17 07:52] LABS: HEMATOCRIT 21.6 % (36.0-47.0); MEAN CORPUSCULAR HEMOGLOBIN 28.7 pg (27.0-33.4); MEAN CORPUSCULAR HGB CONC 33.5 g/dL (32.0-36.0); MEAN CORPUSCULAR VOLUME 86 fl (80-97); PLATELET COUNT 228 10^3/uL (150-450); RED BLOOD COUNT 2.53 10^6/uL (3.72-5.28); RED CELL DISTRIBUTION WIDTH 18.5 % (11.5-14.0); WHITE BLOOD COUNT 16.3 10^3/uL (4.0-10.5)
[2019-07-17 08:21] LABS: HEMOGLOBIN 7.2 g/dL (12.0-15.5)
[2019-07-17] MEDS: DOCUSATE SODIUM 100 MG CAPSULE PO SCH ×2 (09:19→17:12)
[2019-07-17] MEDS: PRENATAL VITAMIN W DHA CAPSULE PO SCH (09:19)
[2019-07-17] MEDS: OXYCODONE-ACETAMINOPHEN 5-325 MG TABLET PO PRN ×2 (09:23→17:07)
--- NOTE | 2019-07-17 10:53 | PDOC PROGRESS REPORT ---
Subjective-OB Progress Note for:: 07/17/19 - POD #3, Pt doing well, Hgb remains low at 7.2 w/ some tachycardia. Pt denies SOB or chest pain. s/p Primary . Hx Pre- eclampsia, chorio during hosptial stay. A+ , pt is . Baby is under the [place]-lights currently Physical Exam (OB) Vital Signs: Temp Pulse Resp BP Pulse Ox 97.3 F 110 H 18 135/76 H 100 07/17/19 07:31 07/17/19 07:31 07/17/19 07:31 07/17/19 07:31 07/17/19 07:31 Intake & Output 07/16/19 07/17/19 07/18/19 06:59 06:59 06:59 Intake Total 5352.75 2580 240 Output Total 1700 Balance 3652.75 2580 240 - General General Appearance: Appears well, Alert In distress: None - PIH/Pre-Eclampsia DTR's: 2 + Clonus: Negative Headache: Absent Epigastric Pain: No Visual Changes: No - Dressing Removed: No Incision: Well Approximated Closure Type: Surgical Glue - Lochia Lochia Amount: Small 10-25 ml Lochia Color: Rubra/Red - Abdomen Description: Soft Hernia Present: No Fundal Description: Firm, Midline Fundal Height: u/u - u/2 - Respiratory Respiratory Status: No respiratory distress - Abdominal Distension: No distension Tenderness: Nontender - Genitourinary Female External exam: Normal Genitourinary Note: voiding - Extremities Upper extremity: Normal inspection Lower extremities: Normal inspection - Neurological Cognition: Normal Orientation: AAOx4 - Psychological Associated symptoms: Normal affect, Normal mood - Skin Skin Temperature: Warm Skin Moisture: Dry Objective-Diagnostic Laboratory: 07/17/19 07:33 07/14/19 20:05 07/17/19 07:33 WBC 16.3 H RBC 2.53 L Hgb 7.2 L Hct 21.6 L MCV 86 MCH 28.7 MCHC 33.5 RDW 18.5 H Plt Count 228 Assessment and Plan(PN) - Assessment and Plan (1) Acute blood loss as cause of postoperative anemia Is this a current diagnosis for this admission?: Yes Plan: d/c with Dr Medina this morning and will plan to transfuse pt w/ 1 unit PRBC. (2) Chorioamnionitis Qualifiers: Fetus number: single or unspecified fetus Trimester: third trimester Qualified Code(s): O41.1230 - Chorioamnionitis, third trimester, not applicable or unspecified Is this a current diagnosis for this admission?: Yes (3) Encounter for induction of labor Is this a current diagnosis for this admission?: Yes (4) Intrauterine Is this a current diagnosis for this admission?: Yes (5) Pre-eclampsia Qualifiers: Trimester: second trimester Qualified Code(s): O14.92 - Unspecified pre- eclampsia, second trimester Is this a current diagnosis for this admission?: Yes (6) S/P primary low transverse Is this a current diagnosis for this admission?: Yes Plan:: Pt consented for blood transfusion, she agrees. PLan of care d/w Dr Medina. If pt does well after the transfusion w/ possibly discharge to home later on today - Time Spent with Patient Time with patient: 15-25 minutes Medications reviewed and adjusted accordingly: Yes - Disposition Anticipated Discharge: Home Within: within 24 hours
[2019-07-17] MEDS: FERROUS SULFATE 325 MG TABLET PO SCH (11:45)
[2019-07-17] MEDS ORDERED: LABETALOL HCL 200 MG TABLET PO ONE ×2 (20:00→22:30)
[2019-07-18] MEDS: IBUPROFEN 800 MG TABLET PO SCH ×3 (00:07→12:04)
[2019-07-18 05:12] LABS: HEMATOCRIT 24.6 % (36.0-47.0); HEMOGLOBIN 8.1 g/dL (12.0-15.5); MEAN CORPUSCULAR HEMOGLOBIN 28.3 pg (27.0-33.4); MEAN CORPUSCULAR HGB CONC 32.9 g/dL (32.0-36.0); MEAN CORPUSCULAR VOLUME 86 fl (80-97); PLATELET COUNT 249 10^3/uL (150-450); RED BLOOD COUNT 2.85 10^6/uL (3.72-5.28); WHITE BLOOD COUNT 13.8 10^3/uL (4.0-10.5)
[2019-07-18] MEDS: OXYCODONE-ACETAMINOPHEN 5-325 MG TABLET PO PRN (07:43)
[2019-07-18] MEDS: DOCUSATE SODIUM 100 MG CAPSULE PO SCH (09:20)
[2019-07-18] MEDS: FERROUS SULFATE 325 MG TABLET PO SCH (09:20)
[2019-07-18] MEDS: PRENATAL VITAMIN W DHA CAPSULE PO SCH (09:20)
[2019-07-18] MEDS ORDERED: LABETALOL HCL 200 MG TABLET PO SCH (10:00)
--- NOTE | 2019-07-18 10:49 | PDOC DISCHARGE SUMMARY ---
Impression - Admit/DC Date/PCP Admission Date/Primary Care Provider: 07/12/19 19:52 Discharge Date: 07/18/19 - POD #4, s/p 1 unit PRBC yesterday, feeling better today. - Discharge Diagnosis (1) Acute blood loss as cause of postoperative anemia Is this a current diagnosis for this admission?: Yes (2) Chorioamnionitis Is this a current diagnosis for this admission?: Yes (3) Encounter for induction of labor Is this a current diagnosis for this admission?: Yes (4) Intrauterine Is this a current diagnosis for this admission?: Yes (5) Pre-eclampsia Is this a current diagnosis for this admission?: Yes (6) S/P primary low transverse Is this a current diagnosis for this admission?: Yes - Additional Information Resuscitation Status: Full Code Discharge Diet: As Tolerated, Regular Discharge Activity: Activity As Tolerated, No Driving, No Lifting Over 10 Pounds, Pelvic Rest Referrals: [facility] [Provider Group] Prescriptions: Ibuprofen [Motrin 800 mg Tablet] 800 mg PO Q6 #60 tablet Oxycodone HCl/Acetaminophen [Percocet 5-325 mg Tablet] 1 tab PO Q4HP PRN #30 tablet PRN Reason: Pain Scale Of 4 Home Medications: Pnv No.103/Folic/Om3s/Fish Oil [ Gummies] 1 tab PO DAILY 06/28/19 Venlafaxine HCl ER [Effexor Xr 37.5 mg Cap.sr] 1 tab PO DAILY 06/28/19 Ferrous Sulfate [Feosol 325 mg Tablet] 325 mg PO DAILY 07/12/19 Ibuprofen [Motrin 800 mg Tablet] 800 mg PO Q6 #60 tablet 07/18/19 Labetalol HCl [Normodyne 200 mg Tablet] 100 mg PO BID tablet 07/18/19 Oxycodone HCl/Acetaminophen [Percocet 5-325 mg Tablet] 1 tab PO Q4HP PRN #30 tablet 07/18/19 HPI Reason(s) for Admission: Induction of Labor Procedures: Management of Obstetric Complications Intrapartum Procedure(s): : Low Cervical, Transverse Results Laboratory Results: WBC 13.8 10^3/uL (4.0-10.5) H 07/18/19 04:46 RBC 2.85 10^6/uL (3.72-5.28) L 07/18/19 04:46 Hgb 8.1 g/dL (12.0-15.5) L 07/18/19 04:46 Hct 24.6 % (36.0-47.0) L 07/18/19 04:46 MCV 86 fl (80-97) 07/18/19 04:46 MCH 28.3 pg (27.0-33.4) 07/18/19 04:46 MCHC 32.9 g/dL (32.0-36.0) 07/18/19 04:46 RDW 18.0 % (11.5-14.0) H 07/18/19 04:46 Plt Count 249 10^3/uL (150-450) 07/18/19 04:46 Lymph % (Auto) Not Reportable 07/14/19 20:05 [place] % (Auto) Not Reportable 07/14/19 20:05 Eos % (Auto) Not Reportable 07/14/19 20:05 Baso % (Auto) Not Reportable 07/14/19 20:05 Absolute Neuts (auto) Not Reportable 07/14/19 20:05 Absolute Lymphs (auto) Not Reportable 07/14/19 20:05 Absolute Monos (auto) Not Reportable 07/14/19 20:05 Absolute Eos (auto) Not Reportable 07/14/19 20:05 Absolute Basos (auto) Not Reportable 07/14/19 20:05 Total Counted 100 07/14/19 20:05 Seg Neutrophils % Not Reportable 07/14/19 20:05 Seg Neuts % (Manual) 88 % (42-78) H 07/14/19 20:05 Band Neutrophils % 1 % (3-5) L 07/14/19 20:05 Lymphocytes % (Manual) 4 % (13-45) L 07/14/19 20:05 Atypical Lymphs % 1 % (0) 07/14/19 20:05 Monocytes % (Manual) 5 % (3-13) 07/14/19 20:05 Eosinophils % (Manual) 1 % (0-6) 07/14/19 20:05 Basophils % (Manual) 0 % (0-2) 07/14/19 20:05 Abs Neuts (Manual) 18.5 10^3/uL (1.7-8.2) H 07/14/19 20:05 Abs Lymphs (Manual) 1.0 10^3/uL (0.5-4.7) 07/14/19 20:05 Abs Monocytes (Manual) 1.0 10^3/uL (0.1-1.4) 07/14/19 20:05 Absolute Eos (Manual) 0.2 10^3/uL (0.0-0.6) 07/14/19 20:05 Abs Basophils (Manual) 0.0 10^3/uL (0.0-0.2) 07/14/19 20:05 Giant Platelets PRESENT 07/14/19 20:05 Platelet Comment ADEQUATE 07/14/19 20:05 Polychromasia SLIGHT 07/14/19 20:05 Anisocytosis 2+ 07/14/19 20:05 PT 14.3 SEC (11.4-15.4) 07/14/19 20:05 INR 1.10 07/14/19 20:05 APTT 29.5 SEC (23.5-35.8) 07/14/19 20:05 Sodium 134.9 mmol/L (137-145) L 07/14/19 20:05 Potassium 3.5 mmol/L (3.6-5.0) L 07/14/19 20:05 Chloride 107 mmol/L (98-107) 07/14/19 20:05 Carbon Dioxide 20 mmol/L (22-30) L 07/14/19 20:05 Anion Gap 8 (5-19) 07/14/19 20:05 BUN 3 mg/dL (7-20) L 07/14/19 20:05 Creatinine 0.54 mg/dL (0.52-1.25) 07/14/19 20:05 Est GFR ( Amer) > 60 (>60) 07/14/19 20:05 Est GFR (MDRD) Non-Af > 60 (>60) 07/14/19 20:05 Glucose 125 mg/dL (75-110) H 07/14/19 20:05 Uric Acid 4.8 mg/dL (2.5-6.2) 07/13/19 09:22 Calcium 8.1 mg/dL (8.4-10.2) L 07/14/19 20:05 Total Bilirubin 0.5 mg/dL (0.2-1.3) 07/14/19 20:05 Direct Bilirubin 0.3 mg/dL (0.0-0.4) 07/14/19 20:05 Neonat Total Bilirubin Not Reportable 07/14/19 20:05 Neonat Direct Bilirubin Not Reportable 07/14/19 20:05 Neonat Indirect Bili Not Reportable 07/14/19 20:05 AST 19 U/L (14-36) 07/14/19 20:05 ALT 11 U/L (<35) 07/14/19 20:05 Alkaline Phosphatase 117 U/L (38-126) 07/14/19 20:05 Lactate Dehydrogenase 190 U/L (120-246) 07/13/19 09:22 Total Protein 5.3 g/dL (6.3-8.2) L 07/14/19 20:05 Albumin 2.6 g/dL (3.5-5.0) L 07/14/19 20:05 Urine Color YELLOW 07/12/19 20:05 Urine Appearance CLEAR 07/12/19 20:05 Urine pH 6.0 (5.0-9.0) 07/12/19 20:05 Ur Specific [place] 1.017 07/12/19 20:05 Urine Protein 100 mg/dL (NEGATIVE) H 07/12/19 20:05 Urine Glucose (UA) NEGATIVE mg/dL (NEGATIVE) 07/12/19 20:05 Urine Ketones NEGATIVE mg/dL (NEGATIVE) 07/12/19 20:05 Urine Blood NEGATIVE (NEGATIVE) 07/12/19 20:05 Urine Nitrite NEGATIVE (NEGATIVE) 07/12/19 20:05 Urine Bilirubin NEGATIVE (NEGATIVE) 07/12/19 20:05 Urine Urobilinogen NEGATIVE mg/dL (<2.0) 07/12/19 20:05 Ur Leukocyte Esterase NEGATIVE (NEGATIVE) 07/12/19 20:05 Urine Ascorbic Acid NEGATIVE (NEGATIVE) 07/12/19 20:05 Urine Opiates Screen NEGATIVE 07/12/19 20:05 Urine Methadone Screen NEGATIVE 07/12/19 20:05 Ur Barbiturates Screen NEGATIVE 07/12/19 20:05 Ur Phencyclidine Scrn NEGATIVE 07/12/19 20:05 Ur Amphetamines Screen NEGATIVE 07/12/19 20:05 U Benzodiazepines Scrn NEGATIVE 07/12/19 20:05 Urine Cocaine Screen NEGATIVE 07/12/19 20:05 U Marijuana (THC) Screen NEGATIVE 07/12/19 20:05 RPR NONREACTIVE (NONREACTIVE) 07/12/19 21:06 Blood Type A POSITIVE 07/17/19 11:10 Antibody Screen NEGATIVE 07/17/19 11:10 Crossmatch See Detail 07/17/19 11:10 Plan Health Concerns: iron rich foods discussed Plan of Treatment: d/c home. F/up with [facility] in one week
[2019-07-18 11:42] VITALS: BP 138/86
== END 2019-07-18 12:40 | disposition home or self-care (01) | DRG 786 ==
LOC: LR 19:52 → 2S 07-14 21:36
PROVIDERS: ADMIT Obstetrics & Gynecology; ATTEND Student in an Organized Health Care Education/Training Program
PROC: 10D00Z1 Extraction of Products of Conception, Low, Open Approach (ICD-10-PCS; principal; 2019-07-14)
PROC: 30233N1 Transfusion of Nonautologous Red Blood Cells into Peripheral Vein, Percutaneous Approach (ICD-10-PCS; 2019-07-17)
DX: O14.94 Unspecified pre-eclampsia, complicating childbirth (principal); O41.1230 Chorioamnionitis, third trimester, not applicable or unspecified; D62 Acute posthemorrhagic anemia; O62.1 Secondary uterine inertia; O69.81X0 Labor and delivery complicated by cord around neck, without compression, not applicable or unspecified; O76 Abnormality in fetal heart rate and rhythm complicating labor and delivery; Z3A.37 37 weeks gestation of pregnancy; O90.81 Anemia of the puerperium; Z37.0 Single live birth
CPT/HCPCS: 1961; 36415; 36430; 80053; 80307; 81005; 83615; 84550; 85025; 85027; 85610; 85730; 86592; 86850; 86900; 86901; 86920; 88307; 94760; 94799; C1758; J0131; J0290; J0360; J0690; J1100; J1170; J1200; J1580; J1756; J1885; J2250; J2270; J2405; J2550; J2590; J3010; J3490; J7050; J7060; J7120; P9016

== ENCOUNTER 2019-07-20 15:29 | Emergency (ER) | payer BC ==
--- NOTE | 2019-07-20 16:07 | ER Document Report ---
ED Medical Screen (RME) - General Chief Complaint: Arm Pain Stated Complaint: ARM PAIN Time Seen by Provider: 07/20/19 16:04 Mode of Arrival: Ambulatory Information source: Patient Notes: 28-year-old female presents to ED for complaint of pain and swelling to the left before meals and upper arm. She just delivered her child's 6 days ago had a blood transfusion 3 days ago and now has redness and swelling to the left upper arm. I have ordered a venous Doppler. She will be seen by another provider. I have greeted and performed a rapid initial assessment of this patient. A comprehensive ED assessment and evaluation of the patient, analysis of test results and completion of medical decision making process will be conducted by an additional ED providers. TRAVEL OUTSIDE OF THE [place] IN LAST 30 DAYS: No - Related Data Allergies/Adverse Reactions: No Known Allergies Allergy (Verified 07/12/19 21:33) Physical Exam - Vital signs Vitals: Temp Pulse Resp BP Pulse Ox 98.4 F 101 H 16 153/101 H 96 07/20/19 15:58 07/20/19 15:58 07/20/19 15:58 07/20/19 15:58 07/20/19 15:58 Course - Vital Signs Vital signs: Temp Pulse Resp BP Pulse Ox 98.4 F 101 H 16 153/101 H 96 07/20/19 15:58 07/20/19 15:58 07/20/19 15:58 07/20/19 15:58 07/20/19 15:58
[2019-07-20 17:52] LABS: APPEARANCE,URINE SLIGHTLY-CLOUDY; BILIRUBIN,URINE NEGATIVE (NEGATIVE); COLOR,URINE YELLOW; GLUCOSE, URINE NEGATIVE (NEGATIVE); KETONES,URINE NEGATIVE (NEGATIVE); PROTEIN,URINE 30 mg/dL (NEGATIVE); URINE SPECIFIC GRAVITY 1.021
--- NOTE | 2019-07-20 18:32 | RADIOLOGY REPORT (SQ) ---
EXAM DESCRIPTION: VENOUS UNILATERAL UPPER COMPLETED DATE/TIME: 07/20/2019 6:16 pm REASON FOR STUDY: Pain swelling recent blood transfusion COMPARISON: None. TECHNIQUE: Dynamic and static godinez scale and color images acquired of the left arm venous system. Se lected spectral images acquired with additional compression and augmentation maneuvers. Images stored on PACS. LIMITATIONS: None. FINDINGS: LEFT INTERNAL JUGULAR VEIN: Normal phasicity, compression, augmentation. No visualized echogenic material on godinez scale. No defects on color images. Comparison opposite side normal. SUBCLAVIAN VEIN: Normal compression, augmentation. No visualized echogenic material on godinez scale. No defects on color images. AXILLARY VEIN: Normal compression, augmentation. No visualized echogenic material on godinez scale. No d efects on color images. BRACHIAL VEIN: Normal compression, augmentation. No visualized echogenic material on godinez scale. No d efects on color images. BASILIC VEIN: Normal compression, augmentation. No visualized echogenic material on godinez scale. No de fects on color images. CEPHALIC VEIN: In the antecubital fossa, acute hypoechoic clot is seen in the left cephalic vein. OTHER: No other significant finding. IMPRESSION: Acute hypoechoic clot the left cephalic vein in the forearm. TECHNICAL DOCUMENTATION: JOB ID: [id number] 2010 [email or web address]- All Rights Reserved Reading location - IP/workstation name: [id number]
--- NOTE | 2019-07-20 20:39 | ER Document Report ---
ED General - General Chief Complaint: Arm Problem Stated Complaint: ARM PAIN Time Seen by Provider: 07/20/19 16:04 Mode of Arrival: Ambulatory TRAVEL OUTSIDE OF THE [place] IN LAST 30 DAYS: No - HPI Notes: Patient is a 28-year-old female who presents complaining of left arm pain near her antecubital space that began over the past couple days. Patient states that she had a blood transfusion 3 days ago where she received 1 unit of blood. Patient states that she had a 6 days ago and had a low hemoglobin thereafter which is why she received a transfusion. She is otherwise feeling well and is eating and drinking without difficulty. She is urinating normally. She does have preeclampsia and is on labetalol. [facility] and has an appointment tomorrow at 8 AM. Denies any headache, fever, neck pain, URI, sore throat, chest pain, palpitations, syncope, cough, shortness of breath, wheeze, dyspnea, abdominal pain, nausea/vomiting/diarrhea, urinary retention, dysuria, hematuria, or rash. Denies any prolonged immobilization, distance travel, personal cancer history, hormone use, or previous DVT/PE. - Related Data Allergies/Adverse Reactions: No Known Allergies Allergy (Verified 07/12/19 21:33) Home Medications: labetalol, ibuprofen, effexor, prenatals, percocet Past Medical History - General Information source: Patient - Social History Smoking Status: Never Smoker Chew tobacco use (# tins/day): No Frequency of alcohol use: None Drug Abuse: None Family History: Reviewed & Not Pertinent Patient has suicidal ideation: No Patient has homicidal ideation: No Review of Systems - Review of Systems -: Yes All other systems reviewed and negative Physical Exam - Vital signs Vitals: Temp Pulse Resp BP Pulse Ox 98.4 F 101 H 16 153/101 H 96 07/20/19 15:58 07/20/19 15:58 07/20/19 15:58 07/20/19 15:58 07/20/19 15:58 - Notes Notes: PHYSICAL EXAMINATION: GENERAL: Well-appearing, well-nourished and in no acute distress. LUNGS: Breath sounds clear to auscultation bilaterally and equal. No wheezes rales or rhonchi. HEART: Regular rate and rhythm without murmurs, rubs, gallops. Musculoskeletal: Left arm: There is erythema, induration, and tenderness to the antecubital space. FROM to passive/active. Strength 5+/5. N/V intact distal. No bony tenderness. Extremities: No cyanosis, clubbing, or edema b/l. Peripheral pulses 2+. Capillary refill less than 3 seconds. NEUROLOGICAL: Normal speech, normal gait. Normal sensory, motor exams PSYCH: Normal mood, normal affect. SKIN: Warm, Dry, normal turgor, no rashes or lesions noted. Course - Re-evaluation Re-evalutation: 07/20/19 Patient is an afebrile, well-hydrated, 28-year-old female who presents with a left cephalic vein DVT but I suspect secondary to her blood transfusion site. Vitals are acceptable without significant tachycardia, tachypnea, or hypoxia. PE is otherwise unremarkable for any neurovascular compromise, obvious tendon/leg rupture, obvious fracture/dislocation, septic joint. Patient is nontoxic-appearing and is tolerating p.o. without difficulty. Labs acceptable. I did call and discussed with [employer], Dr. Jim, who recommends Lovenox for right now and she is scheduled for follow-up tomorrow at 8 AM. No further work- up warranted at this time. Low suspicion for any other systemic or emergent condition at this time. Patient does not have any chest pain, shortness of breath, or dyspnea on exertion. Return to the ED with any other worsening/concerning symptoms. Patient is in agreement. - Vital Signs Vital signs: Temp Pulse Resp BP Pulse Ox 98.4 F 101 H 16 152/82 H 96 07/20/19 15:58 07/20/19 15:58 07/20/19 15:58 07/20/19 16:07 07/20/19 15:58 - Laboratory Laboratory results interpreted by me: 07/20/19 16:45 Urine Protein 30 H Urine Blood LARGE H Urine Urobilinogen 2.0 H Leukocyte Esterase Rfl TRACE H Discharge - Discharge Clinical Impression: Left cephalic vein thrombosis Condition: Stable Disposition: HOME, SELF-CARE Additional Instructions: Monitor for any worsening symptoms F/u with your OBGYN tomorrow at 8am as scheduled* Return to the ED with any worsening symptoms and/or development of fever, headache, chest pain, palpitations, syncope, shortness of breath, trouble breathing, abdominal pain, n/v/d, muscle weakness/paralysis, numbness/tingling, swelling, redness, or other worsening symptoms that are concerning to you. Prescriptions: Enoxaparin Sodium 110 mg SQ BID #10 syringe Forms: Elevated Blood Pressure Referrals: ELIZABETH WAN MD [ACTIVE STAFF] - Follow up as needed [facility] [Provider Group] - 07/21/19 8:00 am
[2019-07-20] MEDS ORDERED: LABETALOL HCL 200 MG TABLET PO ONE (20:56)
[2019-07-20 21:49] LABS: HEMATOCRIT 29.5 % (36.0-47.0); HEMOGLOBIN 9.8 g/dL (12.0-15.5); MEAN CORPUSCULAR HEMOGLOBIN 28.8 pg (27.0-33.4); MEAN CORPUSCULAR VOLUME 87 fl (80-97); PLATELET COUNT 374 10^3/uL (150-450); RED BLOOD COUNT 3.39 10^6/uL (3.72-5.28); RED CELL DISTRIBUTION WIDTH 19.4 % (11.5-14.0); WHITE BLOOD COUNT 12.9 10^3/uL (4.0-10.5)
[2019-07-20 21:54] LABS: INTERNATIONAL RATION (INR) 0.92; PROTHROMBIN TIME 12.4 SEC (11.4-15.4)
[2019-07-20 21:55] LABS: PARTIAL THROMBOPLASTIN TIME 27.7 SEC (23.5-35.8)
[2019-07-20] MEDS ORDERED: ENOXAPARIN SODIUM INJ 120 MG/0.8 ML DISP.SYRIN SUBCUT SCH (22:00)
[2019-07-20 22:06] LABS: ABSOLUTE LYMPHOCYTES# (MANUAL) 3.6 10^3/uL (0.5-4.7); ABSOLUTE MONOCYTES # (MANUAL) 0.5 10^3/uL (0.1-1.4); BAND NEUTROPHILS % (MANUAL) 1 % (3-5); BASOPHILS % (MANUAL) 0 % (0-2); EOSINOPHILS % (MANUAL) 1 % (0-6); LYMPHOCYTES % (MANUAL) 27 % (13-45); MONOCYTES % (MANUAL) 4 % (3-13); SEGMENTED NEUTROPHILS % (MAN) 66 % (42-78); TOTAL CELLS COUNTED 100
[2019-07-20 22:07] LABS: ANISOCYTOSIS 2+; PLATELET COMMENT ADEQUATE; POLYCHROMASIA SLIGHT; TOXIC GRANULATION SLIGHT
[2019-07-20 22:44] VITALS: BP 135/90
== END 2019-07-20 22:51 | disposition home or self-care (01) ==
LOC: ER 15:29
DX: I82.612 Acute embolism and thrombosis of superficial veins of left upper extremity (principal); M79.602 Pain in left arm
CPT/HCPCS: 99284; 96372; 36415; 85025; 85610; 85730; 81001; 93971; J1650